=== PATIENT | male | born 1950 | race Caucasian/White ===

== ENCOUNTER 2019-04-13 14:10 | Emergency (ER) | payer MEDICARE, MEDICAID ==
[~2019-04-13] VITALS: Ht 170.2 cm; Wt 100.0 kg
--- NOTE | 2019-04-13 14:38 | PHYS DOC ---
Past History Past Medical History: Bipolar, Hypertension, Schizophrenia, Other Additional Past Medical Histor: GOUT Past Surgical History: Other Additional Past Surgical Histo: RIGHT HAND Alcohol Use: None Adult General Chief Complaint Chief Complaint: HAND PROBLEM HPI HPI 68-year-old male presents with left hand pain, swelling, no erythema. Patient tells me it has been this way for about a week. The skin is very tender to the touch. It is red and warm. The patient has a history of gout but is not taking any of his medication. He has had gout in his feet and knees, but never his hand or wrist. The pain extends to his wrist. Patient denies any trauma or falls. Denies fever or chills. He has no other complaints this time. Review of Systems Review of Systems Constitutional: Denies fever or chills [] Eyes: Denies change in visual acuity, redness, or eye pain [] HENT: Denies nasal congestion or sore throat [] Respiratory: Denies cough or shortness of breath [] Cardiovascular: No additional information not addressed in HPI [] GI: Denies abdominal pain, nausea, vomiting, bloody stools or diarrhea [] : Denies dysuria or hematuria [] Musculoskeletal: Left wrist and hand pain[] Integument: Denies rash or skin lesions [] Neurologic: Denies headache, focal weakness or sensory changes [] Endocrine: Denies polyuria or polydipsia [] All other systems were reviewed and found to be within normal limits, except as documented in this note. Allergies Allergies Allergies Coded Allergies Type Severity Reaction Last Updated Verified No Known Drug Allergies 04/13/19 No Physical Exam Physical Exam Constitutional: Well developed, well nourished, no acute distress, non-toxic appearance. [] HENT: Normocephalic, atraumatic, bilateral external ears normal, oropharynx moist, no oral exudates, nose normal. [] Eyes: PERRLA, EOMI, conjunctiva normal, no discharge. [] Neck: Normal range of motion, no tenderness, supple, no stridor. [] Cardiovascular:Heart rate regular rhythm, no murmur [] Lungs & Thorax: Bilateral breath sounds clear to auscultation [] Abdomen: Bowel sounds normal, soft, no tenderness, no masses, no pulsatile masses. [] Skin: Warm, dry, no erythema, no rash. [] Back: No tenderness, no CVA tenderness. [] Extremities: Left lateral wrist and bilateral hand erythematous and warm to the touch with mild to moderate swelling. Skin very sensitive to touch.[] Neurologic: Alert and oriented X 3, normal motor function, normal sensory function, no focal deficits noted. [] Psychologic: Affect normal, judgement normal, mood normal. [] Current Patient Data Vital Signs Vital Signs Date Time Temp Pulse Resp B/P (MAP) Pulse Ox O2 Delivery O2 Flow Rate FiO2 04/13/19 14:20 97.9 88 20 184/95 (124) 98 Room Air EKG EKG [] Radiology/Procedures Radiology/Procedures [] Impressions: AP, lateral, and oblique views of the left hand were performed. History: Pain redness and swelling Comparison: none. There is an old avulsion fracture of the ulnar styloid. There is mild diffuse subcutaneous swelling which appears worse at the second digit. No fracture subluxation dislocation. Joint spaces appear intact. Electronically signed by: Froylan Rizo MD (04/13/2019 2:59 PM) [facility] [id number] DICTATED AND SIGNED BY: FROYLAN RIZO MD DATE: 04/13/19 1459 CC: JEFFERY ALANIZ DO; MORRIS ROSAS MD ~ Course & Med Decision Making Course & Med Decision Making Pertinent Labs and Imaging studies reviewed. (See chart for details) There is no fracture. This could be a gout flare or cellulitis. I will treat him with both Indomethacin 50mg three times a day for 5 days as well as Keflex 500 mg 3 times a day for 7 days. He is stable for discharge at this time. [] Dragon Disclaimer Dragon Disclaimer This electronic medical record was generated, in whole or in part, using a voice recognition dictation system. Departure Departure: Impression: Primary Impression: Gout of left hand Additional Impression: Cellulitis of left hand Disposition: 01 HOME, SELF-CARE Condition: STABLE Referrals: MORRIS ROSAS MD (PCP) Patient Instructions: Cellulitis, Zjkr-qo-Hydr, Gout, Gurs-re-Augk Scripts Cephalexin (KEFLEX) 500 Mg Capsule 1 CAP PO TID for hand cellulitis for 7 Days, #21 CAP 0 Refills Prov: JEFFERY ALANIZ DO 04/13/19 Indomethacin (INDOMETHACIN) 50 Mg Capsule 1 CAP PO TID for arthritis for 5 Days, #30 CAP 0 Refills with food Prov: JEFFERY ALANIZ DO 04/13/19 Problem Qualifiers JEFFERY ALANIZ DO Apr 13, 2019 14:38
--- NOTE | 2019-04-13 15:02 | RAD ---
AP, lateral, and oblique views of the left hand were performed. History: Pain redness and swelling Comparison: none. There is an old avulsion fracture of the ulnar styloid. There is mild diffuse subcutaneous swelling which appears worse at the second digit. No fracture subluxation dislocation. Joint spaces appear intact. Electronically signed by: Antonio Ramirez MD (04/13/2019 2:59 PM) [facility]
[2019-04-13] MEDS ORDERED: INDO50CA15 PO (15:10)
[2019-04-13] MEDS ORDERED: CEPH-264 PO (15:10)
[2019-04-13 15:40] VITALS: BP 180/108
[2019-04-13] MEDS ORDERED: HYDROcodone/APAP 5/325MG 1 TAB TABLET PO ONE (15:45)
== END 2019-04-13 15:40 | disposition home or self-care (01) ==
LOC: ER 14:10
DX: M10.9 Gout, unspecified (principal); L03.114 Cellulitis of left upper limb; I10 Essential (primary) hypertension
CPT/HCPCS: 73130; 99284

== ENCOUNTER 2019-04-20 16:35 | Emergency (ER) | payer MEDICARE, MEDICAID ==
[~2019-04-20] VITALS: Ht 170.2 cm; Wt 104.6 kg
[~2019-04-20 16:35] MED LIST: CEPH-264 PO; INDO50CA15 PO
[2019-04-20] MEDS ORDERED: IPRATRPIUM/ALBUTEROL 0.5/2.5MG 3 ML NEBU. NEB ONE (17:00)
--- NOTE | 2019-04-20 17:10 | PHYS DOC ---
Past History Past Medical History: Bipolar, Hypertension, Schizophrenia, Other Additional Past Medical Histor: GOUT Past Surgical History: Other Additional Past Surgical Histo: RIGHT HAND Alcohol Use: None Adult General Chief Complaint Chief Complaint: FEVER HPI HPI 68-year-old male presents with 2 day history of intermittent fever, shortness of breath, and increased fatigue. I recently saw the patient in the emergency room for a hand cellulitis or gout. That is improving. He continues to take Keflex and indomethacin. He states the shortness of breath is worse when he lies down. He has to sleep sitting up. He does not have a known history of CHF. He has felt intermittently feverish, but has not measured a fever. He denies diagnosis of COPD. He smoked for a short period of time, but was methamphetamines not cigar ettes. He denies chest pain. His blood pressure is elevated. He is supposed be on blood pressure medication, but does not been taking any. Review of Systems Review of Systems Constitutional: Fever, fatigue.] Eyes: Denies change in visual acuity, redness, or eye pain [] HENT: Denies nasal congestion or sore throat [] Respiratory: Cough with shortness of breath [] Cardiovascular: No additional information not addressed in HPI [] GI: Denies abdominal pain, nausea, vomiting, bloody stools or diarrhea [] : Denies dysuria or hematuria [] Musculoskeletal: Denies back pain or joint pain [] Integument: Denies rash or skin lesions [] Neurologic: Denies headache, focal weakness or sensory changes [] Endocrine: Denies polyuria or polydipsia [] All other systems were reviewed and found to be within normal limits, except as documented in this note. Current Medications Current Medications Current Medications Medications (Trade) Dose Ordered Sig/[facility] Start Time Stop Time Status Last Admin Dose Admin Albuterol/ Ipratropium (Duoneb) 3 ml 1X ONCE 04/20/19 17:00 04/20/19 17:01 DC Allergies Allergies Allergies Coded Allergies Type Severity Reaction Last Updated Verified No Known Drug Allergies 04/13/19 No Physical Exam Physical Exam Constitutional: Well developed, well nourished, no acute distress, non-toxic appearance. [] HENT: Normocephalic, atraumatic, bilateral external ears normal, oropharynx moist, no oral exudates, nose normal. [] Eyes: PERRLA, EOMI, conjunctiva normal, no discharge. [] Neck: Normal range of motion, no tenderness, supple, no stridor. [] Cardiovascular:Heart rate regular rhythm, no murmur [] Lungs & Thorax: Bilateral breath sounds clear to auscultation [] Abdomen: Bowel sounds normal, soft, no tenderness, no masses, no pulsatile masses. [] Skin: Warm, dry, no erythema, no rash. [] Back: No tenderness, no CVA tenderness. [] Extremities: No tenderness, no cyanosis, no clubbing, ROM intact, no edema. [] Neurologic: Alert and oriented X 3, normal motor function, normal sensory function, no focal deficits noted. [] Psychologic: Affect normal, judgement normal, mood normal. [] Current Patient Data Vital Signs Vital Signs Date Time Temp Pulse Resp B/P (MAP) Pulse Ox O2 Delivery O2 Flow Rate FiO2 04/20/19 16:40 98.4 87 32 200/111 (140) 97 Room Air EKG EKG Possible irregular rhythm, rate 88, P waves difficult to see, no ST elevations or depressions.[] Radiology/Procedures Radiology/Procedures [] Impressions: PA and lateral chest. HISTORY: Short of breath, cough PA and lateral views were taken of the chest. Lungs are clear. Heart is normal in size. There is no effusion. IMPRESSION: 1. No acute chest disease. Electronically signed by: Morris Negrete MD (04/20/2019 5:46 PM) [id number] DICTATED AND SIGNED BY: MORRIS NEGRETE MD DATE: 04/20/19 1746 CC: JEFFERY ALANIZ DO; MORRIS ROSAS MD ~ Course & Med Decision Making Course & Med Decision Making Pertinent Labs and Imaging studies reviewed. (See chart for details) The patient's labs are unremarkable except for low albumin. His troponin is negative. His CK she is unremarkable. It appears possibly irregular, but I do see some P waves. Rate is controlled. Influenza is negative. His chest x-rays negative for infection. This. They viral URI with cough. I will give the patient 125 of Solu-Medrol. I have given him 20 mg of lisinopril and 0.2 mg clonidine for his elevated blood pressure. It has improved. I will discharge him on 20 mg lisinopril for 30 days. He is stable for discharge at this time. [] Dragon Disclaimer Dragon Disclaimer This electronic medical record was generated, in whole or in part, using a voice recognition dictation system. Departure Departure: Impression: Primary Impression: Viral URI with cough Additional Impression: Hypertension Disposition: 01 HOME, SELF-CARE Condition: STABLE Referrals: MORRIS ROSAS MD (PCP) Patient Instructions: Hypertension, Ugzs-rm-Igoe, Upper Respiratory Infection, Adult, Ckhj-wp-Xedy Scripts Lisinopril (LISINOPRIL) 20 Mg Tablet 1 TAB PO DAILY for hypertension, #30 TAB 0 Refills Prov: JEFFERY ALANIZ DO 04/20/19 Problem Qualifiers JEFFERY ALANIZ DO Apr 20, 2019 17:10
[2019-04-20] MEDS ORDERED: LISINOPRIL 5 MG TABLET. PO ONE (17:15)
[2019-04-20] MEDS ORDERED: cloNIDine HCL 0.1 MG TABLET PO ONE (17:15)
[2019-04-20 17:23] LABS: BASO % 1 % (0-3); EOS # 0.3 x10^3/uL (0.0-0.7); EOS % 4 % (0-3); HEMATOCRIT 49.3 % (39.0-53.0); HEMOGLOBIN 16.8 g/dL (13.0-17.5); LYMPH # 1.8 x10^3/uL (1.0-4.8); LYMPH % 21 % (24-48); MEAN CORPUSCULAR HEMOGLOBIN 32 pg (25-35); MEAN CORPUSCULAR HGB CONC 34 g/dL (31-37); MEAN CORPUSCULAR VOLUME 94 fL (79-100); MONO # 1.5 x10^3/uL (0.0-1.1); MONO % 17 % (0-9); NEUT % 58 % (31-73); PLATELET COUNT 246 x10^3/uL (140-400); RED BLOOD COUNT 5.27 x10^6/uL (4.30-5.70); WHITE BLOOD COUNT 8.6 x10^3/uL (4.0-11.0)
[2019-04-20 17:32] LABS: CALCIUM 8.4 mg/dL (8.5-10.1); CREATININE 1.1 mg/dL (0.7-1.3); GFR 66.4; POTASSIUM 4.4 mmol/L (3.5-5.1)
[2019-04-20 17:37] LABS: ALBUMIN 2.7 g/dL (3.4-5.0); ALBUMIN/GLOBULIN RATIO 0.7 (1.0-1.7); TOTAL BILIRUBIN 0.2 mg/dL (0.2-1.0); TOTAL PROTEIN 6.6 g/dL (6.4-8.2)
[2019-04-20 17:42] LABS: INFLUENZA A PATIENT NEGATIVE (NEGATIVE); INFLUENZA B PATIENT NEGATIVE (NEGATIVE)
--- NOTE | 2019-04-20 17:43 | EKG ---
[address] [address] Test Date: 2019-04-20 Test Time: 17:20:51 Pat Name: PONCHO GOODE Department: Room: Gender: M High [employer] Director: : 1950 Requested By: JEFFERY ALANIZ Order Number: [id number] Reading MD: Measurements Intervals [employer] [place] Rate: 88 P: [place]: QRS: 13 QRSD: 94 T: 22 QT: 350 QTc: 427 Interpretive Statements IRREGULAR RHYTHM, NO P-WAVE FOUND VENTRICULAR PREMATURE COMPLEX(ES) ABNORMAL ECG RI6.01 No previous ECG available for comparison
--- NOTE | 2019-04-20 17:48 | RAD ---
PA and lateral chest. HISTORY: Short of breath, cough PA and lateral views were taken of the chest. Lungs are clear. Heart is normal in size. There is no effusion. IMPRESSION: 1. No acute chest disease. Electronically signed by: Zion Dominguez MD (04/20/2019 5:46 PM) [id number]
[2019-04-20 17:53] VITALS: BP 171/81
[2019-04-20] MEDS ORDERED: LISI-334 PO (17:53)
[2019-04-20] MEDS ORDERED: LISINOPRIL 10 MG TABLET PO ONE (18:00)
[2019-04-20] MEDS ORDERED: methylPREDNISolone SOD SUCC PF 125 MG/2 ML VIAL. IV ONE (18:00)
== END 2019-04-20 18:07 | disposition home or self-care (01) ==
LOC: ER 16:35
DX: J06.9 Acute upper respiratory infection, unspecified (principal); B97.89 Other viral agents as the cause of diseases classified elsewhere; I10 Essential (primary) hypertension
CPT/HCPCS: 36415; 71046; 80053; 84484; 85025; 87040; 87804; 93005; 94640; 96374; 99285; J2930; J7620

== ENCOUNTER 2020-11-19 19:44 | Emergency (ER) | payer MEDICAID, MEDICARE ==
[~2020-11-19] VITALS: Ht 170.2 cm; Wt 90.9 kg
[~2020-11-19 19:44] MED LIST changes: +LISI20TA18 PO
--- NOTE | 2020-11-19 20:24 | PHYS DOC ---
Past History Past Medical History: Bipolar, Hypertension, Schizophrenia, Other Additional Past Medical Histor: GOUT Past Surgical History: Other Additional Past Surgical Histo: RIGHT HAND Alcohol Use: None General Adult HPI: HPI: " I think I am having Gout attack.".. " I usually get a steroid shot when it is this bad and some pain meds..".. " This has been going on the last two days.. " Patient is a 70 year old male who presents with above hx and complaints pain in right knee and foot which he attributes to his gout flares. Patient denies any previous aspiration of the joint to confirm diagnosis of gout. Patient states he is always been treated like it is gout. Patient normally follows with Dr. Ford as a primary. No recent travel. No severe ill contacts. Patient does not think he has taken an excessive meats. Patient has had some subjective fevers. Patient has past medical history of bipolar disorder, hypertension, schizophrenia, gout, and arthritis. Patient states he takes no meds for gout suppression. Review of Systems: Review of Systems: Constitutional: Denies fever or chills Eyes: Denies change in visual acuity HENT: Denies nasal congestion or sore throat Respiratory: Denies cough or shortness of breath Cardiovascular: Denies chest pain or edema GI: Denies abdominal pain, nausea, vomiting, bloody stools or diarrhea : Denies dysuria Musculoskeletal: Complaints of Rt Knee and ankle pain. Integument: Denies rash Neurologic: Denies headache, focal weakness or sensory changes Endocrine: Denies polyuria or polydipsia Lymphatic: Denies swollen glands Psychiatric: Denies depression or anxiety Family History: Family History: Noncontributory to presentation. Current Medications: Current Meds: See nursing for home meds Allergies: Allergies: Allergies Coded Allergies Type Severity Reaction Last Updated Verified No Known Drug Allergies 04/13/19 No Physical Exam: PE: Constitutional: Moderate acute distress, non-toxic appearance. [] HENT: Normocephalic, atraumatic, bilateral external ears normal, oropharynx moist, no oral exudates, nose normal. [] Eyes: PERRLA, EOMI, conjunctiva normal, no discharge. [] Neck: Normal range of motion, no tenderness, supple, no stridor. [] Cardiovascular: Tachycardia heart rate, irregular rhythm, no murmur [] bedside monitor shows a sinus tachycardia with occasional PVCs and PACs. Lungs & Thorax: Bilateral breath sounds equal apex with scattered wheezes on auscultation Basilar crackles bilateral. Abdomen: Bowel sounds normal, soft, no tenderness, no masses, no pulsatile masses. Obese. Skin: Warm, dry, no erythema, no rash. [] Back: No tenderness, no CVA tenderness. [] Extremities: Right leg tenderness, no cyanosis, no clubbing, ROM intact, right knee and right ankle edema. [] Except findings of edema in right knee and ankle. No first toe tenderness Neurologic: Alert and oriented X 3, normal motor function, normal sensory function, no focal deficits noted. [] Psychologic: Affect anxious, judgement normal, mood normal. [] EKG: EKG: My interpretation EKG shows a sinus tachycardia 127 bpm. Does have occasional premature ventricular complexes. Left axis changes and ST and T changes. No findings of acute STEMI with collateral changes. [] Radiology/Procedures: Radiology/Procedures: [address] [address] IMAGING REPORT Signed PATIENT: PONCHO GOODE ACCOUNT: [id number] : 1950 LOCATION: ER AGE: 70 SEX: M EXAM STATUS: REG ER ORD. PHYSICIAN: MIHIR RAMIREZ MD REASON: hx of gout, PAIN X 3 DAYS PROCEDURE: FOOT RIGHT 3V Exam: Right foot 3 views INDICATION: Pain, gout TECHNIQUE: Frontal, lateral and oblique views of the right foot Comparisons: None FINDINGS: Erosive degenerative changes noted at the first MTP joint. Mild soft tissue swelling distal first MTP joint. No acute fracture. Bone mineralization is normal. IMPRESSION: Erosive changes at the first MTP joint, likely sequela of known gout. No acute fracture. Electronically signed by: Dejuan Jimenez MD (11/19/2020 10:09 PM) [facility] DICTATED AND SIGNED BY: DEJUAN JIMENEZ MD DATE: 11/19/202208 CC: MIHIR RAMIREZ MD; MORRIS FORD MD ~MTH0 0 [][address] [id number] IMAGING REPORT Signed PATIENT: PONCHO GOODE ACCOUNT: [id number] : 1950 LOCATION: ER AGE: 70 SEX: M EXAM STATUS: REG ER ORD. PHYSICIAN: MIHIR RAMIREZ MD REASON: hx of gout, PAIN X 3 DAYS PROCEDURE: KNEE RIGHT 4V Exam: Right knee 4 views INDICATION: Gout TECHNIQUE: Frontal, lateral and oblique views of the right knee Comparisons: None FINDINGS: Bone mineralization is normal. No acute or healed fractures. Soft tissues are unremarkable. Joint spaces are well-maintained. IMPRESSION: No acute osseous abnormality Electronically signed by: Dejuan Jimenez MD (11/19/2020 10:09 PM) [facility] DICTATED AND SIGNED BY: DEJUAN JIMENEZ MD DATE: 11/19/202207 CC: MIHIR RAMIREZ MD; MORRIS FORD MD ~MTH0 0 Heart Score: C/O Chest Pain: No HEART Score for Chest Pain: HEART Score for Chest Pain Response (Comments) Value History Moderately Suspicious 1 ECG Nonspecific Repolarizatio 1 Age > 65 2 Risk Factors 1 or 2 Risk Factors 1 Total 5 Risk Factors: Risk Factors: DM, Current or recent (<one month) smoker, HTN, HLP, family history of CAD, obesity. Risk Scores: Score 0 - 3: 2.5% MACE over next 6 weeks - Discharge Home Score 4 - 6: 20.3% MACE over next 6 weeks - Admit for Clinical Observation Score 7 - 10: 72.7% MACE over next 6 weeks - Early Invasive Strategies Course & Med Decision Making: Course & Med Decision Making Pertinent Labs and Imaging studies reviewed. (See chart for details) Pt. refusing COVID testing. Pt. refusing Admission. Patient refusing repeat draw for troponin. Begged pt. to reconside his decision to be discharge. Impression: 1. Elevated uric acid level 2. Leukocytosis 19 with 81 segs and 15 monos 3. Diabetes glucose 216 4. CHF-diastolic dysfunction-BNP 1339 5. Marijuana and tobacco use 6. Fever 7. Elevated uric acid= 7.4 Patient encouraged to return anytime he elected to be admitted or transferred to [facility]. Patient take daily aspirin. Patient take Tylenol ibuprofen for pain. Patient follow-up primary care Dr. Ford. Patient discharged home per his request. [] Dragon Disclaimer: Dragon Disclaimer: This electronic medical record was generated, in whole or in part, using a voice recognition dictation system. Departure Departure: Referrals: MORRIS FORD MD (PCP) Scripts Cephalexin (KEFLEX) 500 Mg Capsule 500 MG PO TID for infection for 10 Days, #30 CAP Prov: MIHIR RAMIREZ MD 11/20/20 Apixaban (ELIQUIS) 5 Mg Tablet 5 MG PO BID for dvt for 30 Days, #60 TAB Prov: MIHIR RAMIREZ MD 11/20/20 Dragpatrica Disclaimer This chart was dictated in whole or in part using Voice Recognition software in a busy, high-work load, and often noisy Emergency Department environment. It may contain unintended and wholly unrecognized errors or omissions. Dragon Disclaimer This chart was dictated in whole or in part using Voice Recognition software in a busy, high-work load, and often noisy Emergency Department environment. It may contain unintended and wholly unrecognized errors or omissions. Dragon Disclaimer This chart was dictated in whole or in part using Voice Recognition software in a busy, high-work load, and often noisy Emergency Department environment. It may contain unintended and wholly unrecognized errors or omissions. MIHIR RAMIREZ MD Nov 19, 2020 20:24
[2020-11-19] MEDS ORDERED: methylPREDNISolone ACETATE 40 MG/ML VIAL. IM ONE (21:30)
[2020-11-19] MEDS ORDERED: IV RINGERS SOLUTION,LACTATED 1,000 ML IV SCH (21:30)
[2020-11-19] MEDS ORDERED: KETOROLAC 30 MG/ML VIAL. IVP ONE (21:30)
[2020-11-19 22:04] LABS: BASO % 0 % (0-3); EOS % 0 % (0-3); HEMATOCRIT 50.8 % (39.0-53.0); HEMOGLOBIN 17.5 g/dL (13.0-17.5); LYMPH % 5 % (24-48); MEAN CORPUSCULAR HEMOGLOBIN 32 pg (25-35); MEAN CORPUSCULAR HGB CONC 35 g/dL (31-37); MEAN CORPUSCULAR VOLUME 94 fL (79-100); MONO # 2.8 x10^3/uL (0.0-1.1); MONO % 15 % (0-9); NEUT # 15.2 x10^3uL (1.8-7.7); NEUT % 80 % (31-73); PLATELET COUNT 212 x10^3/uL (140-400); RED CELL DISTRIBUTION WIDTH 13.8 % (11.5-14.5)
[2020-11-19] MEDS ORDERED: IV NORMAL SALINE 50ML 50 ML ONE (22:04)
[2020-11-19] MEDS ORDERED: cefTRIAXone SODIUM 1 GM VIAL ONE (22:04)
[2020-11-19 22:07] LABS: CALCIUM 8.4 mg/dL (8.5-10.1); CREATININE 1.3 mg/dL (0.7-1.3); GFR 54.4
--- NOTE | 2020-11-19 22:11 | RAD ---
Exam: Right knee 4 views INDICATION: Gout TECHNIQUE: Frontal, lateral and oblique views of the right knee Comparisons: None FINDINGS: Bone mineralization is normal. No acute or healed fractures. Soft tissues are unremarkable. Joint spa varinder are well-maintained. IMPRESSION: No acute osseous abnormality Electronically signed by: Dejuan Bajwa MD (11/19/2020 10:09 PM) [facility]
--- NOTE | 2020-11-19 22:12 | RAD ---
Exam: Right foot 3 views INDICATION: Pain, gout TECHNIQUE: Frontal, lateral and oblique views of the right foot Comparisons: None FINDINGS: Erosive degenerative changes noted at the first MTP joint. Mild soft tissue swelling distal first MTP joint. No acute fracture. Bone mineralization is normal. IMPRESSION: Erosive changes at the first MTP joint, likely sequela of known gout. No acute fracture. Electronically signed by: Dejuan Bajwa MD (11/19/2020 10:09 PM) [facility]
[2020-11-19 22:20] LABS: ALBUMIN 3.2 g/dL (3.4-5.0); DIRECT BILIRUBIN 0.6 mg/dL (0.0-0.2); MAGNESIUM 1.8 mg/dL (1.8-2.4); TOTAL BILIRUBIN 1.7 mg/dL (0.2-1.0); TOTAL PROTEIN 7.1 g/dL (6.4-8.2); URIC ACID 7.4 mg/dL (3.5-7.2)
[2020-11-19 22:24] VITALS: BP 171/94
[2020-11-19 22:33] LABS: % BANDS 4 % (0-9); % LYMPHS 5 % (24-48); % MONOS 10 % (0-10); % SEGS 81 % (35-66)
[2020-11-19 22:34] LABS: PLT ESTIMATE ADEQUATE (ADEQUATE)
[2020-11-20] MEDS ORDERED: FUROSEMIDE 40 MG/4 ML VIAL IVP ONE (01:15)
[2020-11-20 01:34] LABS: BARBITURATES NEG (NEG); BENZODIAZEPINES NEG (NEG); CANNABINOIDS POS (NEG); COCAINE NEG (NEG); METHADONE NEG (NEG); OPIATES POS (NEG); PHENCYCLIDINE NEG (NEG)
[2020-11-20 01:41] LABS: AMPHETAMINE/METHAMPHETAMINE NEG (NEG)
[2020-11-20] MEDS ORDERED: APIX5TAB3 PO (01:49)
[2020-11-20] MEDS ORDERED: CEPH500C PO (01:50)
[2020-11-20] MEDS ORDERED: APIXABAN 5 MG TABLET. PO ONE (02:00)
--- NOTE | 2020-11-20 02:10 | RAD ---
EXAMINATION: Chest radiograph. VIEWS: 2 COMPARISON: April 20, 2019 INDICATION:70 years, Male, congestive heart failure, tachycardia. FINDINGS: Normal cardiomediastinal silhouette. No focal consolidation. No pleural effusion or pneumothorax. No acute osseous process. IMPRESSION: No acute cardiopulmonary process. Electronically signed by: Tomás Wood DO (11/20/2020 2:08 AM) [facility]
[2020-11-20] MEDS ORDERED: oxyCODONE/APAP 5/325 1 TAB TABLET PO ONE (02:30)
--- NOTE | 2020-11-20 04:51 | EKG ---
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
== END 2020-11-20 02:30 | disposition home or self-care (01) ==
LOC: ER 19:44
DX: R82.998 Other abnormal findings in urine (principal); D72.829 Elevated white blood cell count, unspecified; E11.9 Type 2 diabetes mellitus without complications; I11.0 Hypertensive heart disease with heart failure; I50.9 Heart failure, unspecified; F31.9 Bipolar disorder, unspecified; F20.9 Schizophrenia, unspecified; M19.90 Unspecified osteoarthritis, unspecified site
CPT/HCPCS: 36415; 71046; 73564; 73630; 80048; 80076; 80307; 83735; 83880; 84550; 85007; 85025; 87040; 93005; 96365; 96372; 96375; 99285; J0696; J1030; J1885; J1940; J7120

== ENCOUNTER 2021-01-24 19:06 | Emergency (ER) | payer MEDICARE, MEDICAID ==
[~2021-01-24] VITALS: Ht 170.2 cm; Wt 90.9 kg
[~2021-01-24 19:06] MED LIST changes: +APIX5TAB3 PO; +CEPH500C PO
--- NOTE | 2021-01-24 20:28 | PHYS DOC ---
Past History Past Medical History: Bipolar, Hypertension, Schizophrenia, Other Additional Past Medical Histor: GOUT (CASIMIRO ROBB) Past Surgical History: Other Additional Past Surgical Histo: RIGHT HAND (CASIMIRO ROBB) Alcohol Use: None Drug Use: Marijuana (CASIMIRO ROBB) General Adult EDM: Chief Complaint: LOWER EXT PAIN HPI: HPI: Patient is a 70 year old male who presents with right lower leg pain. Patient rates his pain 8/10 at rest and 10/10 with ambulation. Patient was seen 2 months ago for similar pain. He describes the pain as "[id number]" that he also sometimes feels in his fingertips. He reports that his leg is sometimes erythematous and swollen, with increased pain. Patient does have history of gout, but at this time denies any red or swollen joints. He reports chronic shortness of breath, but it has gotten worse over "the past few days." On his last visit, he was prescribed Eliquis, which she has since stopped taking. Patient has no other complaints at this time. (CASIMIRO ROBB) Review of Systems: Review of Systems: Constitutional: Denies fever or chills Respiratory: See HPI Cardiovascular: Denies chest pain or edema GI: Denies abdominal pain, nausea, vomiting, bloody stools or diarrhea : Denies dysuria or hematuria Musculoskeletal: See HPI Integument: See HPI Neurologic: See HPI Endocrine: Denies polyuria or polydipsia (CASIMIRO ROBB) Current Medications: Current Meds: Current Medications Medications (Trade) Dose Ordered Sig/[facility] Start Time Stop Time Status Last Admin Dose Admin Ketorolac Tromethamine (Toradol Im) 60 mg 1X ONCE 01/24/21 20:30 01/24/21 20:31 UNV (CASIMIRO ROBB) Allergies: Allergies: Allergies Coded Allergies Type Severity Reaction Last Updated Verified No Known Drug Allergies 01/24/21 No (CASIMIRO ROBB) Physical Exam: PE: Constitutional: Well developed, well nourished, poorly groomed, no acute distress, non-toxic appearance. HENT: Normocephalic, atraumatic, bilateral external ears normal, oropharynx moist, several missing teeth, no oral exudates, external nose normal. Eyes: PERRLA, EOMI, conjunctiva normal, no discharge. Cardiovascular: Heart rate regular rhythm, no murmur. Lungs & Thorax: Breath sounds decreased diffusely. Skin: Warm, dry, no erythema, no rash. Extremities: Left lower leg tender posterior aspect mid calf, no cyanosis, no clubbing, ROM intact, no edema. Neurologic: Alert and oriented x4, motor function grossly intact, sensory function grossly intact, no focal deficits noted. (CASIMIRO ROBB) Current Patient Data: Vital Signs: Vital Signs Date Time Temp Pulse Resp B/P (MAP) Pulse Ox O2 Delivery O2 Flow Rate FiO2 01/24/21 19:19 97.9 61 18 158/85 (109) 97 Room Air (CASIMIRO ROBB) Radiology/Procedures: Radiology/Procedures: PROCEDURE: VENOUS LOWER EXTREMITY RIGHT EXAM: Right lower extremity venous Doppler. HISTORY: Right lower extremity pain/swelling. COMPARISON: None. FINDINGS: Grayscale and Doppler analysis of the right lower extremity deep venous system was performed with graded compression and augmentation. The common femoral, greater saphenous, superficial femoral, popliteal and calf veins were assessed. The right peroneal veins are noncompressible consistent with thrombosis. A small right popliteal cyst measures 5.0 x 3.0 x 1.0 cm. IMPRESSION: 1. Findings consistent with deep venous thrombosis within the right peroneal veins. These findings were called to Dr. Melendez by Adrian Naranjo on 01/24/2021 at 11:04 PM. FOR INTERNAL CODING PURPOSES RESULT CODE: (C) Electronically signed by: Mary Naranjo MD (01/24/2021 11:06 PM) [facility] DICTATED AND SIGNED BY: DARIA NARANJO MD DATE: 01/24/212301 CC: EMERGENCY,DEPARTMENT; MORRIS ROSAS MD; CASIMIRO ROBB ~MTH0 0 (CASIMIRO ROBB) Heart Score: C/O Chest Pain: No (CASIMIRO ROBB) Course & Med Decision Making: Course & Med Decision Making Pertinent Labs and Imaging studies reviewed. (See chart for details) Reviewed documentation from patient's last visit. Patient was hyperglycemic, had increased uric acid level and a white blood cell count. Patient was treated with Eliquis and Keflex. At that time, he refused both Covid testing and admission. Discussed with patient that the paresthesias in his fingertips and bilateral lower extremities could be related to elevated blood glucose, but he will need further evaluation by his primary care doctor. After having a lengthy conversation about the effects of long-term elevated blood glucose, patient agreed to follow-up with his primary care provider to obtain A1c testing and further evaluation and management. Patient also agrees to resume taking his daily allopurinol. Work-up today will include blood glucose testing and left lower extremity ult rasound. Lower extremity ultrasound reveals DVT in peroneal veins. Upon further investigation, patient does admit to worse shortness of breath than normal. Inform the patient that CTA of the chest would evaluate for pulmonary embolism. Patient and his declined the CTA chest at this time. They wish to sign out AMA, and return in the morning for further evaluation. I strongly encourage the patient to stay here in the department for further evaluation, but he continues to decline. (CASIMIRO ROBB) Dragon Disclaimer: Dragon Disclaimer: This electronic medical record was generated, in whole or in part, using a voice recognition dictation system. (CASIMIRO ROBB) Departure Departure: Impression: Primary Impression: DVT (deep venous thrombosis) Qualified Codes: I82.451 - Acute embolism and thrombosis of right peroneal vein Additional Impressions: Shortness of breath at rest Lower extremity pain, right Left against medical advice Disposition: 07 LEFT AGAINST MEDICAL ADVICE Condition: GUARDED Referrals: MORRIS ROSAS MD (PCP) Patient Instructions: Deep Vein Thrombosis, Pulmonary Embolus Scripts Apixaban (ELIQUIS) 5 Mg Tablet 5 MG PO UD for DVT, #37 TAB Take 2 tablets for the first 7 days, followed by 1 tablet for the remainder. Prov: CASIMIRO ROBB 01/24/21 Attending Signature Attending Signature I have participated in the care of this patient and I have reviewed and agree with all pertinent clinical information above including history, exam, and recommendations. (MIHIR MELENDEZ MD) CASIMIRO ROBB Jan 24, 2021 20:28 MIHIR MELENDEZ MD Jan 29, 2021 19:34
[2021-01-24] MEDS ORDERED: KETOROLAC 60 MG/2 ML VIAL. IM ONE (20:30)
[2021-01-24] MEDS ORDERED: APIX5TAB3 PO (22:59)
[2021-01-24 23:00] VITALS: BP 163/82
[2021-01-24] MEDS ORDERED: APIXABAN 5 MG TABLET. PO SCH (23:00)
[2021-01-24] MEDS ORDERED: APIXABAN 5 MG TABLET. ONE (23:01)
--- NOTE | 2021-01-24 23:09 | RAD ---
EXAM: Right lower extremity venous Doppler. HISTORY: Right lower extremity pain/swelling. COMPARISON: None. FINDINGS: Grayscale and Doppler analysis of the right lower extremity deep venous system was performe d with graded compression and augmentation. The common femoral, greater saphenous, superficial femora l, popliteal and calf veins were assessed. The right peroneal veins are noncompressible consistent with thrombosis. A small right popliteal cyst measures 5.0 x 3.0 x 1.0 cm. IMPRESSION: 1. Findings consistent with deep venous thrombosis within the right peroneal veins. These findings were called to Dr. Melendez by Adrian Naranjo on 01/24/2021 at 11:04 PM. FOR INTERNAL CODING PURPOSES RESULT CODE: (C) Electronically signed by: Mary Naranjo MD (01/24/2021 11:06 PM) [facility]
== END 2021-01-24 23:00 | disposition left against medical advice (07) ==
LOC: ER 19:06
DX: I82.451 Acute embolism and thrombosis of right peroneal vein (principal); R06.02 Shortness of breath; F31.9 Bipolar disorder, unspecified; I10 Essential (primary) hypertension; F20.9 Schizophrenia, unspecified
CPT/HCPCS: 82947; 93971; 96372; 99284; J1885

== ENCOUNTER 2021-04-21 08:32 | Emergency (ER) | payer MEDICAID, MEDICARE ==
[~2021-04-21] VITALS: Ht 170.2 cm; Wt 90.9 kg
[2021-04-21 08:48] VITALS: BP 190/113
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
--- NOTE | 2021-04-21 09:16 | RAD ---
EXAM: Right wrist, 3 views. HISTORY: Fall. COMPARISON: None. FINDINGS: 3 views of the right wrist are obtained. There is no fracture, dislocation or subluxation. There are multiple degenerative subchondral cysts involving the carpal bones. There is cortical irreg ularity along the ulnar aspect of the lunate, without convincing osteonecrosis. There is no foreign b hoang. IMPRESSION: Degenerative change involving the carpal bones, described above. No acute osseous finding . Electronically signed by: Maren Stanley MD (04/21/2021 9:14 AM) [id number]
== END 2021-04-21 09:49 | disposition home or self-care (01) ==
LOC: ER 08:32
DX: M25.531 Pain in right wrist (principal); I10 Essential (primary) hypertension; F31.9 Bipolar disorder, unspecified; F20.9 Schizophrenia, unspecified; W01.0XXA Fall on same level from slipping, tripping and stumbling without subsequent striking against object, initial encounter; Y93.01 Activity, walking, marching and hiking; Y92.89 Other specified places as the place of occurrence of the external cause; Y99.8 Other external cause status
CPT/HCPCS: 73110; 99283